=== PATIENT | female | born 1975 | race Caucasian/White ===

== ENCOUNTER 2017-10-30 18:45 | Emergency (ER) | payer OTHER ==
[~2017-10-30] VITALS: Ht 144.8 cm; Wt 50.8 kg
--- NOTE | ~2017-10-30 | EKG ---
[place] [address] [facility] [place] [address] ELECTROCARDIOGRAM REPORT Name: EMERY TRUONG [id number] Admission: 10/30/17 Attend Phys: Discharge: 10/30/17 Date of : 75 Report #: [id number] THIS REPORT FOR: //name// [facility] ED Test Date: 2017-10-30 Test Time: 19:13:10 Pat Name: EMERY TRUONG Department: Room: Gender: F Car Loader: KEYSHA : 1975 Requested By: Marisa Soriano Order Number: [id number] MD: Patrice Ludwig Measurements Intervals [place] Rate: 68 P: -3 IL: 137 QRS: 72 QRSD: 94 T: 27 QT: 407 QTc: 433 Interpretive Statements Sinus rhythm RSR' in V1 or V2, right VCD or RVH No previous ECG available for comparison Electronically Signed On 10-31-2017 8:58:24 [employer] by Patrice Ludwig [email or web address] <ELECTRONICALLY SIGNED> By: Patrice Ludwig MD 10/31/17 [id number] Patrice Ludwig MD /RUY
[2017-10-30 19:26] LABS: ABSOLUTE NEUTROPHILS 11.5 thou/uL (1.4-8.2); BASOPHILS 0.3 % (0.0-2.0); EOSINOPHILS 0.5 % (0.0-3.0); HEMATOCRIT 36.3 % (37.0-47.0); HEMOGLOBIN 12.4 gm/dL (12.0-15.0); LYMPHOCYTES 10.7 % (24.0-44.0); MCH 29.6 pg (26.0-34.0); MCHC 34.2 g/dL (28.0-37.0); MCV 86.5 fL (80.0-100.0); MONOCYTES 5.3 % (1.0-8.0); PLATELET COUNT 259 thou/uL (150-400); POLYS 83.2 % (36.0-66.0); RDW 12.7 % (10.5-14.5); WBC 13.8 thou/uL (4.0-11.0)
[2017-10-30] MEDS ORDERED: PHENERGAN 25 MG25 M1 PO (19:27)
[2017-10-30] MEDS ORDERED: ZOFRAN ODT4 MG PO (19:27)
[2017-10-30 19:29] LABS: MANUAL DIFF NO
[2017-10-30 19:31] LABS: CALCIUM 9.4 mg/dL (8.5-10.1); CREATININE 0.7 mg/dL (0.6-1.0); POTASSIUM 3.7 mmol/L (3.5-5.1)
[2017-10-30 20:23] VITALS: BP 95/47
[2017-10-30 20:33] LABS: ALBUMIN 4.4 g/dL (3.4-5.0); ALKALINE PHOSPHATASE 65 U/L (46-116); DIRECT BILIRUBIN < 0.1 mg/dL (<0.1-0.3); SGOT 33 U/L (15-37); SGPT 43 U/L (30-65); TOTAL BILIRUBIN 0.3 mg/dL (<0.1-1.0); TOTAL PROTEIN 8.9 g/dL (6.4-8.2)
== END 2017-10-30 20:54 | disposition home or self-care (01) ==
LOC: ER 18:45 → EDBD 18:45 → ER 20:54
PROVIDERS: Emergency Medicine
DX: R11.2 Nausea with vomiting, unspecified (principal); R42 Dizziness and giddiness